=== PATIENT | male | born 1975 | race Two or more races ===

== ENCOUNTER 2020-03-21 22:03 | Emergency (ER) | payer OTHER, SELFPAY ==
[~2020-03-21] VITALS: Ht 180.3 cm; Wt 93.9 kg
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
[2020-03-21] MEDS ORDERED: MORPHINE SULFATE INJ 4 MG/ML DISP.SYRIN ONE (22:22)
[2020-03-21] MEDS ORDERED: ONDANSETRON HCL/PF 4 MG/2 ML VIAL ONE (22:22)
[2020-03-21] MEDS: ONDANSETRON HCL/PF 4 MG/2 ML VIAL IV ONE (22:26)
[2020-03-21] MEDS: MORPHINE SULFATE INJ 2 MG/ML DISP.SYRIN IV ONE (22:26)
[2020-03-21] MEDS ORDERED: HYDROCODONE/APAP 5/325MG TABLET PO ONE (22:30)
[2020-03-21] MEDS ORDERED: HYDROMORPHONE 1 MG/1 ML DISP.SYRIN ONE (23:58)
[2020-03-22] MEDS: HYDROMORPHONE INJ 0.5 MG/0.5 ML SYRINGE IV ONE (00:07)
--- NOTE | 2020-03-22 00:13 | NUR ---
pt remained in bed w/ daughters in room. on ongoing monitoring . kept pt comfortable. will cont to monitor ,
--- NOTE | 2020-03-22 00:30 | NUR ---
emt at bed side to apply splint on r foot fx
--- NOTE | 2020-03-22 00:34 | NUR ---
2nd iv line started on RAC , blood and covid swab and sent to lab
[2020-03-22] MEDS: IV NS 0.9% 1,000 ML BAG IV ONE (00:50)
[2020-03-22 00:53] LABS: BASOPHILS % (AUTO) 0.1 % (0.0-2.0); HEMATOCRIT 42 % (39-51); HEMOGLOBIN 14.2 g/dL (13.5-17.5); LYMPHOCYTES # (AUTO) 0.6 /CMM (0.8-4.8); LYMPHOCYTES % (AUTO) 3.9 % (20.0-44.0); MEAN CORPUSCULAR HGB CONC 34 g/dl (31.0-36.0); MEAN CORPUSCULAR VOLUME 92 fL (80-96); MONOCYTES # (AUTO) 0.8 /CMM (0.1-1.30); MONOCYTES % (AUTO) 5.7 % (2.0-12.0); NEUTROPHILS # (AUTO) 13.1 /CMM (1.8-8.9); NEUTROPHILS % (AUTO) 90.3 % (43.0-81.0); PLATELET COUNT (AUTO) 185 /CMM (150-450); RED BLOOD CELL COUNT(AUTO) 4.51 MIL/uL (4.5-6.0); WHITE BLOOD COUNT (AUTO) 14.5 K/uL (4.3-11.0)
[2020-03-22 01:04] LABS: CALCIUM, SERUM 8.5 mg/dL (8.5-10.1); POTASSIUM 3.3 mmol/L (3.5-5.1)
--- NOTE | 2020-03-22 01:34 | NUR ---
RECEIVED TRANSFER INFORMATION. GOING TO [facility] TO ROOM 4434 BED 1. # FOR REPORT IS [phone] ext. [phone] "[facility]" [employer] @[id number]
[2020-03-22] MEDS ORDERED: HYDROMORPHONE 1 MG/1 ML DISP.SYRIN ONE (01:43)
[2020-03-22] MEDS: HYDROMORPHONE 1 MG/1 ML DISP.SYRIN IV ONE (01:45)
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
[2020-03-22 02:08] VITALS: BP 150/67
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
== END 2020-03-22 02:21 | disposition short-term general hospital (02) ==
LOC: ER 22:05
DX: S32.029A Unspecified fracture of second lumbar vertebra, initial encounter for closed fracture (principal); S92.011A Displaced fracture of body of right calcaneus, initial encounter for closed fracture; V43.52XA Car driver injured in collision with other type car in traffic accident, initial encounter; Y92.411 Interstate highway as the place of occurrence of the external cause; S40.812A Abrasion of left upper arm, initial encounter; S80.211A Abrasion, right knee, initial encounter; S30.811A Abrasion of abdominal wall, initial encounter; R41.3 Other amnesia; M54.2 Cervicalgia; Z20.828 Contact with and (suspected) exposure to other viral communicable diseases
CPT/HCPCS: 29515; 36415; 70450; 72125; 72131; 73600; 80048; 85025; 85730; 87426; 96361; 96374 ×2; 96375 ×2; 96376; 99285; C9803; J1170 ×2; J2270; J2405; J7030